=== PATIENT | male | born 1975 | race Caucasian/White ===

== ENCOUNTER 2016-06-08 22:33 | Emergency (ER) | payer OTHER ==
[~2016-06-08] VITALS: Ht 160 cm; Wt 63.5 kg
--- NOTE | 2016-06-08 23:19 | ED GENERAL ADULT ---
History of Present Illness General Chief Complaint: General Adult Stated Complaint: "I NEED A MED REFILL" Source: patient, family Exam Limitations: no limitations Vital Signs & Intake/Output Vital Signs & Intake/Output Vital Signs Date Time Temp Pulse Resp B/P Pulse O2 O2 Flow FiO2 Ox Delivery Rate 06/09 0021 97.4 85 18 110/65 98 Room Air 06/08 2249 97.1 96 20 106/71 97 Room Air ED Intake and Output 06/09 0000 06/08 1200 Intake Total Output Total Balance Patient 140 lb Weight Allergies Coded Allergies: No Known Allergies (06/08/16) Reconcile Medications Clonazepam 1 MG TABLET 1 TAB PO TID PRN ANXIETY [id number] Lisdexamfetamine Dimesylate (Vyvanse) 30 MG CAPSULE 1 CAP PO QAM ADHD TWENTY....[id number] Triage Note: RECEIVED 41 YO MALE WITH ANXIETY, DEPRESSION AND PARANOIA, TAKES CLONAZEPAM 1 MG TID, AND VYVANSE 30 MG QD, RAN OUT OF MEDS, DOES NOT HAVE APPT UNTIL 06/25. Triage Nurses Notes Reviewed? yes Onset: Gradual Duration: week(s): Timing: recent history Injury Environment: home Severity: mild, moderate Modifying Factors: Improves With: medication. Associated Symptoms: "I really felt it when I ran out of the clonazepam." HPI: 41-year-old gentleman history of congenital heart disease and ADHD presents seeking a medication refill. He states that he recently moved from [place]. He establish care with Dr. Matthew. Dr. Matthew gave him a 1 month supply and instructed him to follow-up with a psychiatrist. He states that he ran out of his to medications. "My doctor won't give me any more refills and so that's why I'm here." He states that he has appointment with a psychiatrist on June 25. He states that he is otherwise well. Has no other concerns. He denies suicidality homicidality or hallucinations. Past History Travel History Traveled to [place] past 21 day No Medical History Any Pertinent Medical History? 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 No Review of Systems Review of Systems Constitutional: Reports: no symptoms. EENTM: Reports: no symptoms. Respiratory: Reports: no symptoms. Cardiovascular: Reports: no symptoms. GI: Reports: no symptoms. Genitourinary: Reports: no symptoms. Musculoskeletal: Reports: no symptoms. Skin: Reports: no symptoms. Neurological/Psychological: Reports: no symptoms. Hematologic/Endocrine: Reports: no symptoms. Immunologic/Allergic: Reports: no symptoms. All Other Systems: Reviewed and Negative Physical Exam Physical Exam General Appearance: well developed/nourished, no apparent distress Head: atraumatic, normal appearance Eyes: Bilateral: normal appearance, PERRL, EOMI. Ears, Nose, Throat: normal pharynx, normal ENT inspection, hearing grossly normal Neck: normal inspection, supple, full range of motion Respiratory: normal breath sounds, chest non-tender, no respiratory distress, quiet respiration, lungs clear Cardiovascular: regular rate/rhythm Gastrointestinal: normal bowel sounds, soft, non-tender Back: normal inspection, normal range of motion Extremities: normal inspection, normal capillary refill, normal range of motion Neurologic/Psych: no motor/sensory deficits, awake, alert, oriented x 3 Skin: intact, normal color, warm/dry Core Measures ACS in differential dx? No CVA/TIA Diagnosis: No Severe Sepsis Present: No Septic Shock Present: No Progress Differential Diagnoses I considered the following diagnoses in my evaluation of the patient: ADHD versus depression versus other psychiatric illness versus other Plan of Care: see below. Initial ED EKG: none Departure Departure Disposition: HOME OR SELF CARE Condition: Stable Clinical Impression Primary Impression: ADHD (attention deficit hyperactivity disorder) Referrals: LISA HICKS,IAIN Li (PCP/Family) Departure Forms: Customer Survey General Discharge Information Prescriptions: Current Visit Scripts Clonazepam 1 TAB PO TID PRN ANXIETY #60 TAB Ref 1 [id number] Lisdexamfetamine Dimesylate (Vyvanse) 1 CAP PO QAM #20 CAP TWENTY....[id number] Comments I gave patient a bridge prescription until June 25 when he will establish with the psychiatrist. Critical Care Note Critical Care Note Critical Care Time: non-applicable
[2016-06-08] MEDS ORDERED: CLONAZEPAM1 M2 PO (23:27)
[2016-06-08] MEDS ORDERED: VYVANSE30 M1 PO (23:27)
[2016-06-09 00:21] VITALS: BP 110/65
== END 2016-06-09 00:21 ==
LOC: ERH 22:33
DX: F90.9 Attention-deficit hyperactivity disorder, unspecified type (principal); Z76.0 Encounter for issue of repeat prescription
CPT/HCPCS: 99281

== ENCOUNTER 2016-09-18 21:20 | Emergency (ER) | payer OTHER ==
[~2016-09-18] VITALS: Ht 160 cm; Wt 68.9 kg
[~2016-09-18 21:20] MED LIST: CLONAZEPAM1 M2 PO; VYVANSE30 M1 PO
--- NOTE | 2016-09-18 22:39 | ED PSYCHIATRIC COMPLAINT ---
See Addendum History of Present Illness General Chief Complaint: General Adult Stated Complaint: BIBA WITH ANXIETY ATTACK Source: patient, old records, EMS Exam Limitations: no limitations Vital Signs & Intake/Output Vital Signs & Intake/Output Vital Signs Date Time Temp Pulse Resp B/P B/P Pulse O2 O2 Flow FiO2 Mean Ox Delivery Rate 09/18 2308 Room Air 09/18 2137 98.8 85 20 91/64 97 Room Air ED Intake and Output 09/19 0000 09/18 1200 Intake Total Output Total Balance Patient 152 lb Weight Weight Reported by Patient Measurement Method Allergies Coded Allergies: No Known Allergies (09/18/16) Reconcile Medications Clonazepam 1 MG TABLET 1 TAB PO TID PRN ANXIETY [id number] Lisdexamfetamine Dimesylate (Vyvanse) 30 MG CAPSULE 1 CAP PO QAM ADHD TWENTY....[id number] Triage Note: TRIAGE: PT KAYDEN C/C FEELING ANXIETY AFTER HAVING ARGUEMENT WITH HIS EXWIFE. HAS HX OF ANXIETY. TAKES SEROQUEL, KLONOPIN AND INTUNIV FOR SAME. USUALLY TAKES ALL 3 OF THEM AT ABOUT THIS TIME BUT HAS NOT TAKEN THOSE DOSES YET. PT WAS SO ANXIOUS AT HOME AFTER LOSING PHONE CONNECTION WITH EMS THAT HE STARTED WALKING TOWARDS THE AMBULANCE. STATES HE FELT LIKE EVERYTHING WAS CLOSING IN ON HIM. ONLY WALKED APPROX 1/2 BLOCK BEFORE SEEING EMS. DENIES ANY PAIN. Triage Nurses Notes Reviewed? yes Onset: Abrupt Duration: hour(s): (2-3), constant, continues in ED, getting worse Timing: single episode today Severity: mild, moderate Severity Numbers: 7 Associated Symptoms: anxiety HPI: 41-year-old male with a history of anxiety, cad, and congenital heart disease brought in by ambulance for evaluation of increasing anxiety and chest pressure. He reports that he was having an argument with his ex- when he suddenly felt very anxious and pressure in his chest. Patient describes pain as pressure that is located in the center of his chest does not radiate. He rates the pain as a 7 out of 10. There are no alleviating or aggravating factors. He has not taken any medication for the pain. Patient currently denies any HI or SI. He does not have a plan to kill himself. He denies any previous suicide attempts. He denies any drug use. Patient reports that he has scheduled to have a cardiac catheter 25th of this month. No sweats, chills, nausea, vomiting, changes in vision, headaches, fever, shortness of breath, coughing, hemoptysis. (BEAU CHEN PA-C) Past History Travel History Traveled to [place] past 21 day No Medical History Any Pertinent Medical History? 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 Yes (BEAU CHEN PA-C) Review of Systems Review of Systems Constitutional: Reports: no symptoms. EENTM: Reports: no symptoms. Respiratory: Reports: no symptoms. Cardiovascular: Reports: see HPI, chest pain. GI: Reports: no symptoms. Genitourinary: Reports: no symptoms. Musculoskeletal: Reports: no symptoms. Skin: Reports: no symptoms. Neurological/Psychological: Reports: see HPI, anxiety. Hematologic/Endocrine: Reports: no symptoms. Immunologic/Allergic: Reports: no symptoms. All Other Systems: Reviewed and Negative (BEAU CHEN PA-C) Physical Exam Physical Exam General Appearance: well developed/nourished, no apparent distress, alert, awake , anxious, mild distress Head: atraumatic, normal appearance Eyes: Bilateral: normal appearance, PERRL, EOMI. 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 patient not suicidal (GUSTAVO BARNETT,BEAU) Progress Differential Diagnosis: electrolyte abnormality, hypoglycemia, panic attack, anxiety, ACS, SD, anemia Plan of Care: Orders Procedure Date/time Status TROPONIN LEVEL 09/20 229 Active EKG 09/20 229 Active URINE DRUG SCREEN FOR ER ONLY 09/18 2253 Complete TROPONIN LEVEL 09/18 2253 Complete COMPREHENSIVE METABOLIC PANEL 09/18 2253 Complete CBC WITHOUT DIFFERENTIAL 09/18 2253 Complete EKG 09/18 2253 Active Laboratory Tests 09/18/16 2341: Anion Gap 10, Estimated GFR > 60, BUN/Creatinine Ratio 11.3, Glucose 93, Calcium 9.2, Total Bilirubin 0.5, AST 21, ALT 44, Alkaline Phosphatase 70, Troponin I < 0.01, Total Protein 7.9, Albumin 4.1, Globulin 3.8, Albumin/Globulin Ratio 1.1, CBC w Diff NO MAN DIFF REQ, RBC 4.24 L, MCV 89.1, MCH 29.5, RDW 13.2, MPV 8.8, Gran % 62.7, Lymphocytes % 26.1, Monocytes % 7.7, Eosinophils % 2.9, Basophils % 0.6, Absolute Granulocytes 4.4, Absolute Lymphocytes 1.8, Absolute Monocytes 0.5 , Absolute Eosinophils 0.2, Absolute Basophils 0, PUBS MCHC 33.1 09/18/16 2309: Urine Opiates Screen < 100.00, Methadone Screen < 40, Barbiturate Screen < 60, Ur Phencyclidine Scrn < 6.00, Amphetamines Screen < 100, U Benzodiazepines Scrn 164, Urine Cocaine Screen < 50, Urine Cannabis Screen < 5.00 Patient is reporting increased anxiety along with chest pressure. Due to history of congenital heart disease and coronary artery disease patient will have a cardiac workup. patient has his home medications including clonazepam Seroquel and Intuniv with him. He reports he usually takes his medications at about this time. 11:56 PM. Patient reports he does not want to see crisis here. He has a therapist that he can see in the morning. He currently denies any HI or SI. A cardiac workup and will follow up with his therapist tomorrow. 1 AM: Initial EKG and troponin are negative. Due to patient's history of coronary artery disease he will require a second EKG and troponin ordered 2 AM. If this is negative he can be discharged home. An order was put in for crisis by mistake and I could not figure out how to discontinue it. Patient does not need to see crisis please disregard disorder. Case discussed with Dr. To and he agrees the plan. Reviewed all results with patient and updated him on the plan. (BEAU CHEN PA-C) Initial ED EKG: NSR, RBBB, LAFB, LVH Prior EKG: unchanged Hand-Off Endorsed To: PHI HICKS,AVA Fitzgerald Endorsed Time: 104 Pending: EKG, labs (troponin) Comments: Please disregard crisis evaluation. order was put in by mistake. (BEAU CHEN PA-C) Departure Departure Disposition: STILL A PATIENT Condition: Stable Clinical Impression Primary Impression: Chest pain Qualifiers: Chest pain type: unspecified Qualified Code: R07.9 - Chest pain, unspecified Secondary Impressions: Anxiety Referrals: LISA HICKS,IAIN Li (PCP/Family) Departure Forms: Customer Survey General Discharge Information (BEAU CHEN PA-C) PA/RAFTER CUTTING MACHINE OPERATOR Co-Sign Statement Statement: ED Attending supervision documentation- [] I saw and evaluated the patient. I have also reviewed all the pertinent lab results and diagnostic results. I agree with the findings and the plan of care as documented in the PA's/RAFTER CUTTING MACHINE OPERATOR's documentation. [x] I have reviewed the ED Record and agree with the PA's/RAFTER CUTTING MACHINE OPERATOR's documentation. [] Additions or exceptions (if any) to the PAs/RAFTER CUTTING MACHINE OPERATOR's note and plan are summarized below: [] (PHI HICKS,AVA Fitzgerald)
[2016-09-19 00:15] LABS: ABSOLUTE BASOPHIL COUNT 0 /CUMM (0.0-0.2); ABSOLUTE EOSINOPHIL COUNT 0.2 /CUMM (0.0-0.7); ABSOLUTE GRANULOCYTE CT 4.4 /CUMM (1.4-6.5); ABSOLUTE LYMPH COUNT 1.8 /CUMM (1.2-3.4); ABSOLUTE MONOCYTE COUNT 0.5 /CUMM (0.10-0.60); BASOPHIL % 0.6 % (0.0-2.0); EOSINOPHIL % 2.9 % (0-5); GRANULOCYTE % 62.7 % (42.2-75.2); HEMATOCRIT 37.8 % (42-52); MEAN CORPUSCULAR HGB 29.5 PG (27.0-31.0); MEAN CORPUSCULAR HGB CONC 33.1 G/DL (33.0-37.0); MEAN CORPUSCULAR VOLUME 89.1 FL (80.0-94.0); MEAN PLATELET VOLUME 8.8 FL (7.4-10.4); PLATELET COUNT 152 /CUMM (130-400); RBC DISTRIBUTION WIDTH 13.2 % (11.5-14.5); RED BLOOD CELL CT 4.24 /CUMM (4.70-6.10)
--- NOTE | 2016-09-19 01:16 | RADIOLOGY REPORT ---
EXAMINATION: XR CHEST CLINICAL INFORMATION: Chest pressure COMPARISON: None TECHNIQUE: 2 views of the chest were obtained. FINDINGS: Lung volumes are symmetric. No focal consolidation is seen. No evidence of pneumothorax, pleural effusion, or pulmonary edema. Cardiac size is at the upper limits of normal. Sternal wires and mediastinal clips are present. There is a prominent kyphosis of the thoracic spine, with no definite acute osseous finding seen. Healed upper right rib fractures are noted. IMPRESSION: No acute findings identified.
[2016-09-19 03:16] VITALS: BP 113/68
== END 2016-09-19 03:17 ==
LOC: ERH 21:20
PROVIDERS: Physician Assistant Medical
DX: F41.9 Anxiety disorder, unspecified (principal); R07.89 Other chest pain
CPT/HCPCS: 80307; 93005; 93010